=== PATIENT | male | born 1990 | race Caucasian/White ===

== ENCOUNTER 2021-08-27 18:15 | Emergency (ER) | payer OTHER, SELFPAY ==
[2021-08-27 18:20] VITALS: BP 137/90; PULSE 98; RESP 18; TEMP 37.2; O2SAT 96
[2021-08-27 18:50] LABS: COVID-19 Test Negative (Negative); IDNOW Serial# 16C4AD1C; Influenza A Negative (Negative); Influenza B2 Negative (Negative)
--- NOTE | 2021-08-27 19:16 | ED_ITS ---
HPI - General Adult General Chief complaint: General Medical <QUYNH Steen Last Filed: 08/27/21 19:19> Stated complaint: COVID Exposure <QUYNH Steen Last Filed: 08/27/21 19:19> Time Seen by Provider: 08/27/21 19:13 <QUYNH Steen Last Filed: 08/27/21 19:19> Source: patient <QUYNH Steen Last Filed: 08/27/21 19:19> Mode of arrival: ambulatory <QUYNH Steen Last Filed: 08/27/21 19:19> History of Present Illness HPI narrative: 30-year-old male with no significant past medical history presenting to the ED requesting COVID-19 and flu testing as was exposed to influenza at work on Thursday. Patient denies any symptoms at present including fever, chills, cough, ear pain, sore throat <QUYNH Steen Last Filed: 08/27/21 19:19> Onset (ago): day(s) <QUYNH Steen Last Filed: 08/27/21 19:19> Related Data Allergies/adverse reactions: Allergies Allergy/AdvReac Type Severity Reaction Status Date / Time shellfish derived Allergy Severe ANAPHYLAXIS Verified 08/27/21 18:20 [SHELLFISH DERIVED] <QUYNH Steen Last Filed: 08/27/21 19:19> Review of Systems Review of Systems: Constitutional: No Weight loss, No Fever, No Chills ENT/Mouth: No Ear Pain, No Nasal Congestion, No Sinus Pain, No Hoarseness, No sore throat, No Rhinorrhea, No Swallowing Difficulty Cardiovascular: No Chest Pain, No SOB Respiratory: No Cough, No Sputum, No Wheezing Gastrointestinal: No Nausea, No Vomiting, No Diarrhea, No Constipation, No Abdominal pain Genitourinary: No Dysuria, No Urinary Frequency, No Hematuria Musculoskeletal: No joint pain, No Myalgias, No Joint Swelling Skin: No Skin Lesions, No rash Neuro: No Weakness <QUYNH Steen Last Filed: 08/27/21 19:19> Yes all other systems are reviewed and are negative <QUYNH Steen Last Filed: 08/27/21 19:19> REPLACED BY [facility] Past Medical History Attestation statement: The following information was validated with the patient. <QUYNH Steen - Last Filed: 08/27/21 19:19> Social History Social History: Social History Advance Directives: No Advance Directives Information Provided: No <QUYNH Steen - Last Filed: 08/27/21 19:19> Physical Exam ED Vital Signs: Vital Signs - 24 hr 08/27/21 18:20 Temperature 99 F Pulse Rate 98 Respiratory Rate 18 Blood Pressure 137/90 H Pulse Oximetry 96 BMI result Body Mass Index 20.0 <QUYNH Steen - Last Filed: 08/27/21 19:19> Const General: cooperative, healthy appearing and no acute distress <QUYNH Steen - Last Filed: 08/27/21 19:19> Orientation/consciousness: patient oriented x3 <QUYNH Steen - Last Filed: 08/27/21 19:19> Limitations: no limitations <QUYNH Steen - Last Filed: 08/27/21 19:19> HENMT Head: Yes normal to inspection and Yes atraumatic <QUYNH Steen - Last Filed: 08/27/21 19:19> Ears: hearing grossly normal bilaterally <QUYNH Steen - Last Filed: 08/27/21 19:19> General nose exam: Normal external nose present <QUYNH Steen - Last Filed: 08/27/21 19:19> Face and sinus: Yes normal facial exam <QUYNH Steen - Last Filed: 08/27/21 19:19> Eyes General: appearance normal, both eyes and all related structures <QUYNH Steen - Last Filed: 08/27/21 19:19> EOM: EOMs intact bilaterally <QUYNH Steen - Last Filed: 08/27/21 19:19> Neck Neck: Yes normal visual inspection and Yes no meningeal signs <QUYNH Steen - Last Filed: 08/27/21 19:19> Resp Effort & Inspection: normal respiratory effort and no respiratory distress <QUYNH Steen - Last Filed: 08/27/21 19:19> Auscultation: clear to auscultation bilaterally <QUYNH Steen - Last Filed: 08/27/21 19:19> Cardio Rate: regular rate <QUYNH Steen - Last Filed: 08/27/21 19:19> Heart sounds: S1 normal heart sound present and S2 normal heart sound present <QUYNH Stene - Last Filed: 08/27/21 19:19> Skin Rashes: no rashes <QUYNH Steen - Last Filed: 08/27/21 19:19> Wounds: no wounds <QUYNH Steen - Last Filed: 08/27/21 19:19> Neuro General: patient oriented x3, tone normal and no meningeal signs <QUYNH Steen - Last Filed: 08/27/21 19:19> Gait exam (Neuro): Normal gait present <QUYNH Steen - Last Filed: 08/27/21 19:19> Extrem General: Yes normal to inspection <QUYNH Steen - Last Filed: 08/27/21 19:19> Course Course Course Narrative: COVID-19 and influenza negative <QUYNH Steen - Last Filed: 08/27/21 19:19> Medical Decision Making MDM Narrative Medical decision making narrative: 30-year-old male with no significant past medical history presenting to the ED requesting COVID-19 and flu testing as was exposed to influenza at work on Thursday. On exam vital signs stable, NAD/nontoxic appearing. Concern for viral illness due to exposure. Plan: COVID-19/influenza testing <QUYNH Steen - Last Filed: 08/27/21 19:19> Medical Records Medical records reviewed: Yes I reviewed the patient's medical records. <QUYNH Steen - Last Filed: 08/27/21 19:19> Lab Data Lab results reviewed: Yes I reviewed the patient's lab results. <QUYNH Steen - Last Filed: 08/27/21 19:19> Labs: Lab Results 08/27/21 08/27/21 Range/Units 18:23 18:23 COVID-19 ([facility]) Negative (Negative) COVID-19 Clin Com See Note Influenza Type A (BRANDY) Negative (Negative) Influenza Type B (BRANDY) Negative (Negative) Influenza A & B Note See Note <QUYNH Steen - Last Filed: 08/27/21 19:19> Discharge Plan Discharge Clinical Impression: Normal exam <QUYNH Steen - Last Filed: 08/27/21 19:19> Patient Disposition: Home, Self-Care <QUYNH Steen - Last Filed: 08/27/21 19:19> Instructions: Normal Exam (ED) <QUYNH Steen - Last Filed: 08/27/21 19:19> Additional Instructions: You tested negative for COVID-19 and the flu <QUYNH Steen - Last Filed: 08/27/21 19:19> Referrals: [facility] [Primary Care Provider] - <QUYNH Steen - Last Filed: 08/27/21 19:19> Interventions: ED Discharge Assessment Last Done: 08/27/21 19:23 <QUYNH Steen - Last Filed: 08/27/21 19:19> Discharge Date/Time: 08/27/21 20:39 <QUYNH Steen - Last Filed: 08/27/21 19:19>
== END 2021-08-27 20:39 | disposition home or self-care (01) ==
PROVIDERS: Emergency Provider Emergency Medicine
DX: Z20.822 Contact with and (suspected) exposure to COVID-19 (principal)
CPT/HCPCS: 87502; 87635; 99283

== ENCOUNTER 2022-08-06 07:00 | Emergency (ER) | payer OTHER, SELFPAY ==
--- NOTE | ~2022-08-06 | XR_ITS ---
EXAMINATION: XR CHEST CLINICAL INFORMATION: Cough and fever COMPARISON: None available. TECHNIQUE: 2 views of the chest were obtained. FINDINGS: No significant abnormality is noted involving the heart, lungs, mediastinum, bony thorax or soft tissues. XR/XR chest 2V IMPRESSION: Unremarkable examination.
[2022-08-06 07:06] VITALS: BP 114/69; BP 127/85; PULSE 82; PULSE 96; RESP 18; TEMP 38.7; O2SAT 96; BMI 18.0
[2022-08-06 07:19] VITALS: BP 118/53; RESP 18; TEMP 38.7; O2SAT 96
--- NOTE | 2022-08-06 07:46 | ECG_ITS ---
Test Reason : weakness Blood Pressure : / mmHG Vent. Rate : 085 BPM Atrial Rate : 085 BPM P-R Int : 150 ms QRS Dur : 100 ms QT Int : 362 ms P-R-T Axes : 078 -24 061 degrees QTc Int : 430 ms Normal sinus rhythm Incomplete right bundle branch block Borderline ECG No previous ECGs available Referred By: Celeste Campos Electronically Signed By:DARCI LOZA
[2022-08-06] MEDS: Acetaminophen 325 MG TABLET 650 MG PO (07:59)
[2022-08-06 08:00] LABS: MANUAL DIFF FLAG NO
[2022-08-06 08:01] LABS: Basophils Percent Auto 0.3 % (0-2); Hematocrit 40.7 % (42.0-52.0); Hemoglobin 14.3 g/dl (14.0-18.0); Imm Gran Abs Auto 0.03 X10*3/uL (0.00-0.03); Imm Gran Pct Auto 0.4 % (0.0-0.4); Lymphocytes Absolute Auto 0.8 X10*3/uL (1.2-4.9); Lymphocytes Percent Auto 10.2 % (20-40); Mean Corpuscular HGB Conc 35.1 g/dl (31.0-36.0); Mean Corpuscular Hemoglobin 31.7 pg (27.0-33.0); Mean Corpuscular Volume 90.2 fL (80.0-98.0); Mean Platelet Volume 9.6 fL (9.4-12.4); Monocytes Absolute Auto 1.4 X10*3/uL (0.1-1.2); Monocytes Percent Auto 17.6 % (2-11); Neutrophils Absolute Auto 5.6 x10*3/uL (2.0-8.3); Neutrophils Percent Auto 71.5 % (45-73); Platelet Count 179 X10*3/uL (160-400); Red Blood Count 4.51 X10*6/uL (4.60-5.80); Red Cell Distribution Width 11.3 % (11.0-16.0); White Blood Count 7.8 X10*3/uL (4.8-10.8)
--- NOTE | 2022-08-06 08:06 | ED_ITS ---
HPI - General Adult General Chief complaint: Weakness Stated complaint: flu like symptoms Time Seen by Provider: 08/06/22 08:06 Source: patient Mode of arrival: ambulatory Limitations: no limitations History of Present Illness HPI narrative: Patient is a 31 year old assigned male at with no reported medical history presenting to the emergency department today with a sore throat, fever, and body aches. Patient states that over the last few days he has had a fever, body aches, and a sore throat. Patient denies any dizziness, lightheadedness, abdominal pain, nausea, vomiting, chills, blurry vision, double vision, loss of vision, chest pain, difficulty breathing, shortness of breath, back pain, night sweats, pain with urination, increased urinary frequency, increased urinary urgency, blood in his urine or stool, syncope or a near syncopal episode, recent trauma or falls, bowel incontinence, bladder incontinence, bowel retention, bladder retention, or any other complaints at this time. Onset (ago): day(s) (2) Severity: mild Severity scale (1-10): 2 Relieving factors: none Exacerbating factors: none Associated symptoms: fever/chills Treatments prior to arrival: none Related Data Previous Rx's Medication Instructions Recorded ondansetron 4 mg disintegrating 4 mg PO Q8H 3 days #9 tabs 08/06/22 tablet penicillin V potassium 500 mg 500 mg PO BID 10 days #20 tabs 08/06/22 tablet Allergies Allergy/AdvReac Type Severity Reaction Status Date / Time shellfish derived Allergy Severe ANAPHYLAXIS Verified 08/27/21 18:20 [SHELLFISH DERIVED] Review of Systems Constitutional: Constitutional: Reports no additional constitutional complaints, Reports body ache(s), Denies chills, Reports fever(s) and Denies night sweats Eyes: Eyes: Reports no additional eye complaints, Denies blurry vision, Denies change in vision, Denies diplopia, Denies eye discharge, Denies loss of vision and Denies eye pain ENT: Denies dizziness and Reports sore throat Cardiovascular: Cardiovascular: Reports no additional cardiovascular complaints, Denies chest pain, Denies lightheadedness, Denies Loss of Cons ciousness and Denies dyspnea Respiratory: Respiratory: Reports no additional respiratory complaints and Denies dyspnea Gastrointestinal: Gastrointestinal: Reports no additional gastrointestinal complaints, Denies abdominal pain, Denies melena, Denies hematochezia, Denies change in bowel habits and Denies change in stool character Genitourinary: Genitourinary: Reports no additional male genitourinary complaints, Denies hematuria, Denies oliguria, Denies difficulty urinating, Denies dysuria, Denies urinary frequency, Denies urinary hesitancy, Denies urinary incontinence and Denies urinary urgency Musculoskeletal: Musculoskeletal: Reports no additional musculoskeletal complaints, Denies numbness and Denies tingling Neurologic: Denies dizziness, Denies loss of vision, Denies numbness and Denies tingling Psychiatric: Psychiatric: Reports no additional psychiatric complaints Endocrine: Endocrine: Reports no additional endocrine complaints Hematologic/Lymphatic: Hematologic/Lymphatic: Reports no additional hematologic/lymphatic complaints Allergic/Immunologic: Allergic/Immunologic: Reports no additional allergic/immunologic complaints [facility] Past Medical History Attestation statement: The following information was validated with the patient. Source: old records reviewed and nursing notes reviewed Social History Social History Alcohol intake: current Alcohol intake frequency: a few times a month Smoked in Last 30 Days: No Use of substances other than those prescribed or required for medical reasons: Yes Substance Use Type: Marijuana Advance Directives: No Advance Directives Information Provided: Yes Physical Exam ED Vital Signs: Vital Signs - 24 hr 08/06/22 07:06 08/06/22 07:19 Temperature 101.7 F H 101.7 F H Pulse Rate 82 Respiratory Rate 18 18 Blood Pressure 114/69 118/53 L Pulse Oximetry 96 96 Oxygen Delivery Method Room Air Room Air BMI result Body Mass Index 18.0 Const General: ill appearing Nutritional Appearance: well nourished Orientation/consciousness: patient oriented x3 Limitations: no limitations [facility] Head: Yes normal to inspection and Yes atraumatic Ears: hearing grossly normal bilaterally and external ears normal General nose exam: Normal external nose present, no nasal discharge noted and no epistaxis Face and sinus: Yes normal facial exam, No abrasion and No laceration Mouth: Normal oral and palatal mucosa present, no drooling and no muffled voice Throat: Yes other (posterior pharynx erythematous) Eyes General: appearance normal, both eyes and all related structures Periorbital: periorbital findings normal Eyelids: Yes eyelids normal Conjunctivae: other (conjunctivitis b/l) Pupils: Equal, round and reactive pupils present EOM: EOMs intact bilaterally Neck Neck: Yes normal visual inspection, Yes full ROM and Yes no lymphadenopathy Chest Chest palpation & inspection: normal inspection of the chest Resp Effort & Inspection: normal respiratory effort Auscultation: clear to auscultation bilaterally Cardio Rate: regular rate Rhythm: regular rhythm GI Inspection: Yes normal to inspection Palpation (GI): Tenderness to palpation present (GI) Auscultation: normal bowel sounds Neuro General: patient oriented x3 Cranial nerves: Yes Equal, round and reactive pupils present Cognition (Neuro): normal cognition Motor exam (neuro): 5/5 motor strength present throughout Sensory Exam: Normal double simultaneous stimulation for sensation Coordination: [id number] test normal Extrem General: Yes normal to inspection, Yes full ROM and Yes capillary refill normal Psych Appearance: grossly normal Mental Status: mental status grossly normal Affect: normal affect Attitude: cooperative Thought process: Normal thought process present Thought content: Normal thought content present Insight: Good insight present (Psych) Medications Administered Discontinued Medications Generic Name Dose Route Start Last Admin Trade Name Pantera PRN Reason Stop Dose Admin Acetaminophen 650 mg 08/06/22 07:46 08/06/22 07:59 Acetaminophen 325 Mg Tablet PO 08/06/22 07:47 650 mg ONCE ONE Administration Ondansetron HCl 4 mg 08/06/22 08:07 08/06/22 08:19 Ondansetron Odt 4 Mg Tab.Rapdis TRANSLINGU 08/06/22 08:08 4 mg ONCE ONE Administration Medical Decision Making Medical Decision Making [facility] Narrative: Patient is a 31 year old assigned male at with no reported medical history presenting to the emergency department today with a fever, body aches, and a sore throat. Patient's physical exam showed an erythematous posterior pharynx. Patient's blood work was unremarkable. Patient's chest x-ray showed no acute process. Patient's strep test was positive. I explained my physical exam findings as well as all test results to the patient. I answered all questions asked by the patient. I stressed the importance of the patient taking his medication as prescribed. I stressed the importance of the patient following up with his primary care provider. I stressed the importance of the patient returning to the emergency department immediately if his symptoms were to worsen or if he were to develop any dizziness, shortness of breath, difficulty breathing, chest pain, blurry vision, loss of vision, nausea, vomiting, abdominal pain, fever, chills, back pain, or any other complaints. Patient verbalized agreement and understanding with this treatment plan and discharge. Differential Diagnosis Differential Diagnoses: The differential diagnosis associated with the presentation includes strep pharyngitis Lab Data MDM Lab Attestation statement: I reviewed the patient's lab results. 08/06/22 07:56 08/06/22 07:56 Labs: Lab Results 08/06/22 08/06/22 08/06/22 Range/Units 07:56 07:56 07:56 WBC 7.8 (4.8-10.8) X10*3/uL RBC 4.51 L (4.60-5.80) X10*6/uL Hgb 14.3 (14.0-18.0) g/dl Hct 40.7 L (42.0-52.0) % MCV 90.2 (80.0-98.0) fL MCH 31.7 (27.0-33.0) pg MCHC 35.1 (31.0-36.0) g/dl RDW 11.3 (11.0-16.0) % Plt Count 179 (160-400) X10*3/uL MPV 9.6 (9.4-12.4) fL Immature Gran % (Auto) 0.4 (0.0-0.4) % Neut % (Auto) 71.5 (45-73) % Lymph % (Auto) 10.2 L (20-40) % Dyer % (Auto) 17.6 H (2-11) % Eos % (Auto) 0.0 (0-4) % Baso % (Auto) 0.3 (0-2) % Lymph # (Auto) 0.8 L (1.2-4.9) X10*3/uL Dyer # (Auto) 1.4 H (0.1-1.2) X10*3/uL Eos # (Auto) 0.0 (0.0-0.4) X10*3/uL Baso # (Auto) 0.0 (0.0-0.2) X10*3/uL Abs Immat Gran (auto) 0.03 (0.00-0.03) X10*3/uL Absolute Neuts (auto) 5.6 (2.0-8.3) x10*3/uL Absolute Nucleated RBC 0.000 (0.0-0.012) X10*3/uL Nucleated RBC % (auto) 0.0 (0.0-0.2) /100WBC Sodium 136 (135-145) mmol/L Potassium 3.9 (3.3-5.1) mmol/L Chloride 102 (96-108) mmol/L Carbon Dioxide 27 (22-29) mmol/L Anion Gap 11 L (12-20) BUN 11 (9-16) mg/dL Creatinine 1.26 (0.5-1.4) mg/dL Estim Creat Clear Calc 79.0 Estimated GFR > 60 Random Glucose 109 (60-115) mg/dL Calcium 8.8 (8.4-10.2) mg/dL Magnesium 1.6 (1.6-2.6) mg/dL Total Bilirubin 0.8 (0.0-1.0) mg/dL AST 19 (5-37) U/L ALT 12 (0-40) U/L Alkaline Phosphatase 79 (39-117) U/L Troponin I High Sens < 2.7 (<3.5-35.0) ng/L Total Protein 6.6 (6.5-8.0) g/dL Albumin 3.9 (3.5-5.0) g/dL COVID-19 ([facility]) (Negative) COVID-19 Clin Com S. pyogenes GrpA BRANDY (Negative) 08/06/22 08/06/22 Range/Units 08:42 09:20 WBC (4.8-10.8) X10*3/uL RBC (4.60-5.80) X10*6/uL Hgb (14.0-18.0) g/dl Hct (42.0-52.0) % MCV (80.0-98.0) fL MCH (27.0-33.0) pg MCHC (31.0-36.0) g/dl RDW (11.0-16.0) % Plt Count (160-400) X10*3/uL MPV (9.4-12.4) fL Immature Gran % (Auto) (0.0-0.4) % Neut % (Auto) (45-73) % Lymph % (Auto) (20-40) % Dyer % (Auto) (2-11) % Eos % (Auto) (0-4) % Baso % (Auto) (0-2) % Lymph # (Auto) (1.2-4.9) X10*3/uL Dyer # (Auto) (0.1-1.2) X10*3/uL Eos # (Auto) (0.0-0.4) X10*3/uL Baso # (Auto) (0.0-0.2) X10*3/uL Abs Immat Gran (auto) (0.00-0.03) X10*3/uL Absolute Neuts (auto) (2.0-8.3) x10*3/uL Absolute Nucleated RBC (0.0-0.012) X10*3/uL Nucleated RBC % (auto) (0.0-0.2) /100WBC Sodium (135-145) mmol/L Potassium (3.3-5.1) mmol/L Chloride (96-108) mmol/L Carbon Dioxide (22-29) mmol/L Anion Gap (12-20) BUN (9-16) mg/dL Creatinine (0.5-1.4) mg/dL Estim Creat Clear Calc Estimated GFR Random Glucose (60-115) mg/dL Calcium (8.4-10.2) mg/dL Magnesium (1.6-2.6) mg/dL Total Bilirubin (0.0-1.0) mg/dL AST (5-37) U/L ALT (0-40) U/L Alkaline Phosphatase (39-117) U/L Troponin I High Sens (<3.5-35.0) ng/L Total Protein (6.5-8.0) g/dL Albumin (3.5-5.0) g/dL COVID-19 ([facility]) Negative (Negative) COVID-19 Clin Com See Note S. pyogenes GrpA BRANDY Positive A (Negative) Independent Interpretation I performed an independent interpretation of an: EKG Interpretation: Vent. Rate: 085 BPM ? ? Atrial Rate: 085 BPM P-R Int: 150 ms? QRS Dur: 100 ms QT Int: 362 ms ? ? ? P-R-T Axes: 078 -24 061 degrees QTc Int: 430 ms ? Normal sinus rhythm Incomplete right bundle branch block Borderline ECG No previous ECGs available DD/ 0800 --- EXAMINATION: XR CHEST CLINICAL INFORMATION: Cough and fever COMPARISON: None available. TECHNIQUE: 2 views of the chest were obtained. FINDINGS: No significant abnormality is noted involving the heart, lungs, mediastinum, bony thorax or soft tissues. XR/XR chest 2V IMPRESSION: Unremarkable examination. Dictated By: George Almanzar MD Signed By: Electronically signed by George Almanzar MD 08/06/22 1019 Discharge Plan Discharge Clinical Impression: Acute streptococcal pharyngitis Patient Disposition: Home, Self-Care Instructions: Strep Throat (DC) Additional Instructions: Follow up with your primary care provider. Return to the emergency department immediately if your symptoms worsen or if you develop any dizziness, shortness of breath, difficulty breathing, chest pain, blurry vision, loss of vision, nausea, vomiting, abdominal pain, fever, chills, back pain, or any other complaints. Prescriptions: New penicillin V potassium 500 mg tablet 500 mg PO BID 10 Days Qty: 20 0RF ondansetron 4 mg tablet,disintegrating 4 mg PO Q8H 3 Days Qty: 9 0RF [place] [facility] [facility] [place] (Call to establish and follow up with a primary care provider. If you already have a primary care provider, please follow up with them.) [facility] [place] [facility] [place]] (Call to establish and follow up with a primary care provider. If you already have a primary care provider, please follow up with them.) [facility] [place] [facility] [place] Group] (Call to establish and follow up with a primary care provider. If you already have a primary care provider, please follow up with them.) Stand Alone Forms: Work/School Release Interventions: ED Discharge Assessment Last Done: 08/06/22 09:50 Discharge Date/Time: 08/06/22 09:55 Print Language: Danish
[2022-08-06] MEDS: Ondansetron ODT 4 MG TAB.RAPDIS TRANSLINGU (08:19)
[2022-08-06 08:22] LABS: Alanine Aminotransferase 12 U/L (0-40); Albumin Level 3.9 g/dL (3.5-5.0); Alkaline Phosphatase 79 U/L (39-117); Anion Gap 11 (12-20); Aspartate Amino Transferase 19 U/L (5-37); Bilirubin Total 0.8 mg/dL (0.0-1.0); Blood Urea Nitrogen 11 mg/dL (9-16); Calcium 8.8 mg/dL (8.4-10.2); Carbon Dioxide 27 mmol/L (22-29); Chloride 102 mmol/L (96-108); Estimated Glomerular Filt Rate > 60; Glucose Random 109 mg/dL (60-115); Magnesium 1.6 mg/dL (1.6-2.6); Potassium 3.9 mmol/L (3.3-5.1); Sodium 136 mmol/L (135-145); Total Protein 6.6 g/dL (6.5-8.0)
[2022-08-06 08:31] LABS: Troponin-I High Sensitivity < 2.7 ng/L (<3.5-35.0)
[2022-08-06 09:14] LABS: COVID-19 Test Negative (Negative); IDNOW Serial# 08D9AD1C
[2022-08-06 09:35] LABS: IDNOW Serial# 08D9AD1C; Strep A Nucleic Acid Positive (Negative)
--- NOTE | 2022-08-06 09:55 | PC.NURSE ---
Reviewed discharge information with patient and partner.
== END 2022-08-06 09:55 | disposition home or self-care (01) ==
PROVIDERS: Physician Assistant Medical; Emergency Provider Emergency Medicine Emergency Medical Services
DX: J02.0 Streptococcal pharyngitis (principal); R50.9 Fever, unspecified; H10.9 Unspecified conjunctivitis; Z20.822 Contact with and (suspected) exposure to COVID-19
CPT/HCPCS: 36415; 71046; 80053; 83735; 84484; 85025; 87635; 87651; 93005; 99283; 99285